=== PATIENT | female | born 1985 | race Caucasian/White ===

== ENCOUNTER 2024-08-30 07:14 | Inpatient (IN) | payer BC, OTHER ==
[~2024-08-30] VITALS: Ht 167.6 cm; Wt 56.6 kg
[2024-08-30 07:46] LABS: Chloride 106 mmol/L (98-107); Potassium 3.5 mmol/L (3.5-5.1); Sodium 140 mmol/L (136-145)
[2024-08-30 07:47] LABS: Anion Gap 9 (5-15); Carbon Dioxide 25 mmol/L (20-31)
[2024-08-30 07:48] LABS: Calcium 10.2 mg/dL (8.7-10.4)
--- NOTE | 2024-08-30 07:51 | ED.PDOC ---
HPI Comments 39 year old female presents to the ED with chief complaint of palpitations. Patient reports that she had woken up this morning feeling like her heart was "fluttering," experiencing palpitations and later some anxiety due to this feeling. Patient relays that she has had multiple episodes in the past, however, when seeing her PCP regarding this concern, she was not sent to a ekg tech to have her heart monitored. Patient denies any chest pain, SOB, dizziness, headache, N/V, or fever. Chief Complaint: Palpitations Time Seen by MD: 07:47 Primary Care Provider: DR BINGHAM Reviewed Notes: Nurses Notes, Medications, Allergies Allergies: Coded Allergies: NO KNOWN ALLERGIES (Unverified , 11/17/10) Information Source: Patient Mode of Arrival: Ambulatory Severity: Moderate Timing: Hours Duration: Since onset Prehospital treatment: None Onset: At Rest Cardiac Risk Factors: None PE Risk Factors: None History of: None Associated Signs and Symptoms: Palpitations Past Medical History PAST MEDICAL HISTORY: Denies Surgical History: Denies all surgeries POP SINGER History: Denies all POP SINGER Hx Family History Family History: Reviewed,noncontributory to illness, Unobtainable Social History Smoker: Non-Smoker Alcohol: Denies ETOH Use Drugs: Denies Drug Use Lives In: Home Constitutional: denies: chills, diaphoresis, fatigue, fever, malaise, sweats, weakness, others EENTM: denies: blurred vision, double vision, ear bleeding, ear discharge, ear drainage, ear pain, ear ringing, eye pain, eye redness, hearing loss, mouth pain, mouth swelling, nasal discharge, nose bleeding, nose congestion, nose pain, photophobia, tearing, throat pain, throat swelling, voice changes, others Respiratory: denies: cough, hemoptysis, orthopnea, SOB at rest, shortness of breath, SOB with excertion, stridor, wheezing, others Cardiovascular: reports: palpitations; denies: chest pain, dizzy spells, diaphoresis, Dyspnea on exertion, edema, irregular heart beat, left arm pain, lightheadedness, PND, syncope, others Gastrointestinal: denies: abdomen distended, abdominal pain, blood streaked bowels, constipated, diarrhea, dysphagia, difficulty swallowing, hematemesis, melena, nausea, poor appetite, poor fluid intake, rectal bleeding, rectal pain, vomiting, others Genitourinary: denies: abnormal vagina bleeding, burning, dyspareunia, dysuria, flank pain, frequency, hematuria, incontinence, pain, , vagina discharge, urgency, others Neurological: denies: dizziness, fainting, headache, left sided numbness, left sided weakness, numbness, paresthesia, pre-existing deficit, right sided numbness, right sided weakness, seizure, speech problems, tingling, tremors, weakness, others Musculoskeletal: denies: back pain, gout, joint pain, joint swelling, muscle pain, muscle stiffness, neck pain, others Integumetry: denies: bruises, change in color, change in hair/nails, dryness, laceration, lesions, lumps, rash, wounds, others Allergic/Immunocompromised: denies: Difficulty Healing, Frequent Infections, Hives, Itching, others Hematologic/Lymphatic: denies: anemia, blood clots, easy bleeding, easy bruising, swollen glands, others Endocrine: denies: excessive hunger, excessive sweating, excessive thirst, excessive urination, flushing, intolerance to cold, intolerance to heat, unexplained weight gain, unexplained weight loss, others Psychiatric: reports: anxiety; denies: bipolar disorder, depression, hopeless, panic disorder, schizophrenia, sleepless, suicidal, others All Other Systems: Reviewed and Negative Physical Exam General Appearance: Moderate Distress, Normal HEENT: Normal ENT Inspection, PERRL/EOMI Neck: Full Range of Motion, Non-Tender, Normal, Normal Inspection Respiratory: Chest Non-Tender, Lungs Clear, No Accessory Muscle Use, No Respiratory Distress, Normal Breath Sounds Cardiovascular: No Edema, No JVD, No Murmur, No Gallop, Normal Peripheral Pulses, Tachycardia Breast Exam: Deferred Gastrointestinal: No Organomegaly, Non Tender, No Pulsatile Mass, Normal Bowel Sounds, Soft Genitalia: Deferred Pelvic: Deferred Rectal: Deferred Extremities: No calf tenderness, Normal capillary refill, Normal inspection, Normal range of motion, Non-tender, No pedal edema Musculoskeletal : Apperance: Normal Neurologic: Alert, regional transfer liaison II-XII nml as Tested, No Motor Deficits, Normal Affect, Normal Mood, No Sensory Deficits Cerebellar Function: Normal Reflexes: Normal Skin: Dry, Normal Color, Warm Peripheral Pulses: 3+ Radial (R), 3+ Radial (L) Lymphatic: No Adenopathy Was a procedure done? Was a procedure done?: No CP Differential Dx Differential Diagnosis: A-fib, A-Flutter, Angina, Anxiety / Panic Attack, Atrial Dysrhythmia, Electrolyte Disorder X-Ray, Labs, Meds, VS Vital Signs Date Time Temp Pulse Resp B/P (MAP) Pulse Ox O2 Delivery O2 Flow Rate FiO2 08/30/24 07:24 78 08/30/24 07:21 98.2 104 16 136/85 (102) 100 Lab Test 08/30/24 07:26 Range/Units White Blood Count Pending Red Blood Count Pending Hemoglobin Pending Hematocrit Pending Mean Corpuscular Volume Pending Mean Corpuscular Hemoglobin Pending Mean Corpuscular Hemoglobin Concent Pending Red Cell Distribution Width Pending Platelet Count Pending Mean Platelet Volume Pending Neutrophils (%) (Auto) Pending Lymphocytes (%) (Auto) Pending Monocytes (%) (Auto) Pending Basophils (%) (Auto) Pending Neutrophils # (Auto) Pending Lymphocytes # (Auto) Pending Monocytes # (Auto) Pending Sodium Level 140 136-145 mmol/L Potassium Level 3.5 3.5-5.1 mmol/L Chloride Level 106 98-107 mmol/L Carbon Dioxide Level 25 20-31 mmol/L Anion Gap 9 5-15 Blood Urea Nitrogen 11 9-23 mg/dL Creatinine 0.83 0.550-1.02 mg/dL Glomerular Filtration Rate Calc 92 >90 mL/min BUN/Creatinine Ratio 13.3 10.0-20.0 Serum Glucose 104 74-106 mg/dL Calcium Level 10.2 8.7-10.4 mg/dL Troponin I High Sensitivity < 3 L </=34 ng/L Patient alert. Complaining of palpitations. Was initially tachycardic. Vitals stable. Possible mitral valve disease. She possibly has a anxiety. She has been having these symptoms for many months. Cardiac marker within normal limits. EKG reviewed does not show any acute changes. Echocardiogram. Cardiology consultation. Explained to the patient. Continue cardiac monitoring. Time of 1ST Reevaluation: 08:47 Reevaluation 1ST: Unchanged Patient Education/Counseling: Diagnosis, Treatment Family Education/Counseling: No Family Present Additional Information I reviewed the following notes from patient's past medical encounters: None The following tests were ordered, and results were reviewed by me: CBC, BMP, Troponin, UA, EKG Additional Information was gathered from interviewing the following independent historians: None I reviewed and agreed with the following test results read by other providers: None I discussed treatment and results with medical personnel. Departure 1 Departure Time of Disposition: 08:02 Impression: Primary Impression: Mitral valve disease Additional Impression: Palpitations Disposition: ADMITTED INPATIENT Admit to: Med Surg Condition: Guarded Critical Care Note Critical Care Time?: No Stability Stability form required: No Heart Score Heart Score: Heart Score Response (Comments) Value History Moderate Suspicious 1 EKG Normal 0 Age <45 0 Risk Factors No known risk factors 0 Troponin Normal limit 0 Total 1 I personally scribed for LUCY SOLOMON MD ([email or web address]) on 08/30/24 at 07:51. Electronically submitted by Stevie Richmond ([email or web address]). LUCY SOLOMON MD Aug 30, 2024 07:51
[2024-08-30 07:53] LABS: BUN/Creatinine Ratio 13.3 (10.0-20.0); Blood Urea Nitrogen 11 mg/dL (9-23); Glucose 104 mg/dL (74-106)
[2024-08-30 08:07] LABS: Basophils # (auto) 0 10 ^3/uL (0-0.2); Basophils % (auto) 0.6 % (0.0-2.0); Eosinophils # (auto) 0.1 10 ^3/uL (0-0.8); Hematocrit 37.9 % (36.0-46.0); Monocytes # (auto) 0.3 10 ^3/uL (0-1.3); Monocytes % (auto) 5.4 % (0.0-12.0); Neutrophils # (auto) 2.9 10 ^3/uL (1.6-8.6); Red Blood Cells 5.13 10^6/uL (4.0-5.20)
[2024-08-30 08:09] LABS: Hemoglobin 12.2 g/dL (12.2-16.2); Lymphocytes # (auto) 1.9 10 ^3/uL (0.4-5.4); Lymphocytes % (auto) 36.6 % (10.0-50.0); Mean Corpuscular Hemoglobin 23.7 pg (28.0-32.0); Mean Corpuscular Hgb Conc. 32.1 g/dL (32.0-36.0); Neutrophils % (auto) 56.4 % (37.0-80.0); Nucleated Red Blood Cells % 0.1 %; Platelet Count (auto) 189 10^3/uL (140-450); Red Cell Distribution Width 16.5 % (11.8-14.3); White Blood Cell 5.2 10^3/uL (4.4-10.8)
[2024-08-30 08:10] VITALS: PULSE 94; RESP 17; O2SAT 100
[2024-08-30 09:18] LABS: Urine Bacteria FEW /hpf (None Seen); Urine Blood Negative /uL (Negative); Urine Clarity Clear (Clear); Urine Color Colorless (Yellow); Urine Protein, UAD Negative (Negative); Urine Specific Gravity 1.004 (1.001-1.035); Urine Squamous Epithelial Cell FEW /hpf (<5); Urine Urobilinogen Normal (Negative); Urine WBC 2 /HPF (0-5); Urine pH 7.5 (5.0-9.0)
--- NOTE | 2024-08-30 12:10 | DVH ---
CHEST RADIOGRAPH Indication: palpitations Technique: Single frontal view of the chest was obtained COMPARISON: None FINDINGS: Lines and Tubes: None Lungs: Clear Pleura: No effusion. No pneumothorax. Cardiomediastinal contours: Unremarkable Bones: Unremarkable IMPRESSION: No acute disease.
[2024-08-30] MEDS ORDERED: ONDANSETRON HCL 4 MG/2 ML VIAL IV PRN (12:45)
[2024-08-30] MEDS ORDERED: NITROGLYCERIN 0.4 MG SL TAB SL PRN (12:45)
[2024-08-30] MEDS ORDERED: ACETAMINOPHEN 325 MG TAB PO PRN (12:45)
[2024-08-30] MEDS ORDERED: MORPHINE SULFATE INJ 2 MG/ml SYRG IV PRN (12:45)
[2024-08-30] MEDS ORDERED: HYDROcodone-ACET 5/325MG TAB PO PRN (12:45)
--- NOTE | 2024-08-30 12:47 | DVHHP2 ---
History of Present Illness Reason for Visit: Palpitations History of Present Illness Estela Peters is a 39-year-old female with past medical history of D&C and breast augmentation who presents to the ED for palpitations and flutter x1 day. Patient states that she awoke feeling palpitations and flutter around 630 this morning. Patient states that she has had this before and got an echo done in May of 2024 with results that were normal. Patient denies any illnesses, but does state that her fiance is sick at home with a cold. Patient also denies any recent stressors or anxiety. Patient denies any shortness of breath, abdominal pain, nausea, vomiting, diarrhea, fever, chills, lightheadedness, weakness, dizziness, and denies any urinary symptoms. Past Surgical History: Other (D&C and breast augmentation) Family History: Other (Grandmother with heart disease) Smoke: No ALCOHOL: none Drugs: None Lives: with Family Domestic Violence: Neg Review of Systems Constitutional: No: Fever, Chills, Sweats, Weakness, Malaise, Other Eyes: No: Pain, Vision change, Conjunctivae inflammation, Eyelid inflammation, Other, Redness ENT: No: Ear pain, Ear discharge, Nose pain, Nose discharge, Nose congestion, Mouth pain, Mouth swelling, Throat pain, Throat swelling, Other Respiratory: No: Cough, Dry, Shortness of breath, SOB with excertion, Wheezing, Hemoptysis, Pleuritic Pain, Sputum, Wheezing, Other Cardiovascular: Palpitations; No: Chest Pain, Orthopnea, Paroxysmal Noc. Dyspnea, Edema, Lt Headedness, Other Gastrointestinal: No: Nausea, Vomiting, Abdominal Pain, Diarrhea, Constipation, Melena, Hematochezia, Other Genitourinary: No Dysuria, No Frequency, No Incontinence, No Hematuria, No Retention, No Other Musculoskeletal: No: other, neck pain, shoulder pain, arm pain, back pain, hand pain, leg pain, foot pain Skin: No: Rash, Lesions, Jaundice, Bruising, Other Neurological: No: Weakness, Numbness, Incoordination, Change in speech, Confusion, Seizures, Other Allergies: Coded Allergies: NO KNOWN ALLERGIES (Unverified , 11/17/10) Medications Current Medications Medications Dose Ordered Sig/Shaila Route Start Time Stop Time Status Last Admin Dose Admin Ceftriaxone Sodium 50 ml @ 100 mls/hr DAILY@09 IV 08/31/24 09:00 UNV Acetaminophen/ Hydrocodone Bitart 1 tab Q4HP PRN PO 08/30/24 12:45 UNV Ondansetron HCl 4 mg Q4HP PRN IV 08/30/24 12:45 UNV Acetaminophen 650 mg Q6HP PRN PO 08/30/24 12:45 UNV Nitroglycerin 0.4 mg Q5MINP PRN SL 08/30/24 12:45 UNV Morphine Sulfate 2 mg Q30M PRN IV 08/30/24 12:45 UNV Exam Vital Signs Vital Signs Date Time Temp Pulse Resp B/P (MAP) Pulse Ox O2 Delivery O2 Flow Rate FiO2 08/30/24 11:05 97.8 133 19 149/83 (105) 100 97.8 08/30/24 08:10 Room Air* 0 21 General Appearance: Alert, Oriented X3, Cooperative, No acute distress HEENT: Atraumatic, PERRLA, EOMI, Mucous membr. moist/pink Respiratory: Clear to auscultation, Normal air movement Cardiovascular: Normal S1, Normal S2, No murmurs Abdominal: Normal bowel sounds, Soft, No tenderness, No hepatospenomegaly, No masses Extremities: No clubbing, No cyanosis, No edema, Normal pulses, No tenderness/swelling Skin: No rashes, No breakdown, No significant lesion Neuro: Normal gait, Normal speech, Strength at 5/5 X4 ext, Normal tone, Sensation intact Psych/Mental Status: Mental status NL, Mood NL Labs/Xrays Labs Test 08/30/24 08:46 08/30/24 07:26 08/30/24 07:25 Range/Units Troponin I High Sensitivity < 3 L </=34 ng/L White Blood Count 5.2 4.4-10.8 10^3/uL Red Blood Count 5.13 4.0-5.20 10^6/uL Hemoglobin 12.2 12.2-16.2 g/dL Hematocrit 37.9 36.0-46.0 % Mean Corpuscular Volume 74.0 L 80.0-100.0 fL Mean Corpuscular Hemoglobin 23.7 L 28.0-32.0 pg Mean Corpuscular Hemoglobin Concent 32.1 32.0-36.0 g/dL Red Cell Distribution Width 16.5 H 11.8-14.3 % Platelet Count 189 140-450 10^3/uL Mean Platelet Volume 8.4 6.9-10.8 fL Neutrophils (%) (Auto) 56.4 37.0-80.0 % Lymphocytes (%) (Auto) 36.6 10.0-50.0 % Monocytes (%) (Auto) 5.4 0.0-12.0 % Eosinophils (%) (Auto) 1.0 0.0-7.0 % Basophils (%) (Auto) 0.6 0.0-2.0 % Neutrophils # (Auto) 2.9 1.6-8.6 10 ^3/uL Lymphocytes # (Auto) 1.9 0.4-5.4 10 ^3/uL Monocytes # (Auto) 0.3 0-1.3 10 ^3/uL Eosinophils # (Auto) 0.1 0-0.8 10 ^3/uL Basophils # (Auto) 0 0-0.2 10 ^3/uL Nucleated Red Blood Cells 0.1 % Sodium Level 140 136-145 mmol/L Potassium Level 3.5 3.5-5.1 mmol/L Chloride Level 106 98-107 mmol/L Carbon Dioxide Level 25 20-31 mmol/L Anion Gap 9 5-15 Blood Urea Nitrogen 11 9-23 mg/dL Creatinine 0.83 0.550-1.02 mg/dL Glomerular Filtration Rate Calc 92 >90 mL/min BUN/Creatinine Ratio 13.3 10.0-20.0 Serum Glucose 104 74-106 mg/dL Calcium Level 10.2 8.7-10.4 mg/dL Urine Color Colorless Yellow Urine Clarity Clear Clear Urine pH 7.5 5.0-9.0 Urine Specific [place] 1.004 1.001-1.035 Urine Protein Negative Negative Urine Ketones Negative Negative Urine Blood Negative Negative /uL Urine Nitrite Negative Negative Urine Bilirubin Negative Negative Urine Urobilinogen Normal Negative mg/dL Urine Leukocyte Esterase 1+ Negative /uL Urine RBC 1 0 - 4 /hpf Urine Microscopic WBC 2 0-5 /HPF Urine Squamous Epithelial Cells Few <5 /hpf Urine Bacteria Few H None Seen /hpf Urine Glucose Normal Normal mg/dL CHEST RADIOGRAPH Indication: palpitations Technique: Single frontal view of the chest was obtained COMPARISON: None FINDINGS: Lines and Tubes: None Lungs: Clear Pleura: No effusion. No pneumothorax. Cardiomediastinal contours: Unremarkable Bones: Unremarkable IMPRESSION: No acute disease. Assessment/Plan Assessment/Plan Assessment/Plan: Palpitations UTI UA A.m. labs Labs EKG Troponin negative x2 Chest x-ray TSH UDS Lipid Echo ordered Antiemetics Pain management IV antibiotics-ceftriaxone Lactic ESR CRP Cardiology consult FEN/PPX Diet IV fluid DVT ppx - not indicated patient ambulating PUD prophylaxis -not indicated patient no history of GI bleed or GERD Discussed plan of care with patient and nurse Home medications reconciled Admit to tele Plan discussed with: Patient My Orders Orders - ANIBAL PEREZ Procedure Category Date Status Time Chest Xray 1 View XY 08/30/24 Resulted 11:06 Ceftriaxone 1gm/50ml PHA 08/31/24 Logged D5w (Rocephin) 09:00 Ceftriaxone 1gm/50ml PHA 08/30/24 Logged D5w (Rocephin) 12:45 Admit ADMIT 08/30/24 Transmitted 12:39 Allergies LOUIE 08/30/24 In Process 12:39 Code Status CODE 08/30/24 Transmitted 12:39 Hydrocodone-Acet PHA 08/30/24 Logged 5/325mg Tab ([place] 12:45 Ondansetron Hcl PHA 08/30/24 Logged (Zofran) 12:45 Complete Blood Count LAB 08/31/24 Verified 04:00 Comprehensive LAB 08/31/24 Verified Metabolic Panel 04:00 Cardiac DIET 08/30/24 Transmitted Diet-2gna,Lofat,Lochol Lunch Acetaminophen Tablet PHA 08/30/24 Logged (Tylenol Tablet) 12:45 Nitroglycerin PHA 08/30/24 Logged Sublingual (Ntrostat 12:45 Morphine Sulfate PHA 08/30/24 Logged Injection 12:45 Stat Ekg For Chest [facility] 08/30/24 In Process Pain 12:39 Notify Md Of Changes [facility] 08/30/24 In Process From Base 12:39 Director [employer] For LOUIE 08/30/24 In Process 24 Hours 12:39 Emergency Dysrhythmia [facility] 08/30/24 In Process Protocol 12:39 Rhythm Strips Once LOUIE 08/30/24 In Process Every Shift 12:39 Oxygen By Nasal RT 08/30/24 Transmitted Cannula 12:39 Date of Service: Aug 30, 2024 Billing Provider: THON,SALINA K [employer] Common Visit Codes: [id number] INP/OBS CARE (HIGH) ANIBAL PEREZ [employer] Aug 30, 2024 12:47
[2024-08-30] MEDS: SODIUM CHLORIDE 0.9% 1,000 ML IV SCH (13:00)
[2024-08-30] MEDS: cefTRIAXone 1GM/50ML D5W 50 ML IV ONE (13:04)
[2024-08-30 13:26] LABS: Amphetamine Screen, Urine Neg (NEGATIVE); Barbiturate Scree,Urine Neg (NEGATIVE); Benzodiazephine Screen, Urine Neg (NEGATIVE); Cannabinoid Screen, Urine Neg (NEGATIVE); Cocaine Screen, Urine Neg (NEGATIVE); Opiate Scree,Urine Neg (NEGATIVE); Phencyclidine Screen, Urine Neg (NEGATIVE)
[2024-08-30 13:56] LABS: Erythrocyte Sedimentation Rate 5 mm/hr (0-20); Triglycerides 93 mg/dL (< 150)
[2024-08-30 13:57] LABS: LDL Cholesterol 95 mg/dL (< 100)
[2024-08-30 13:58] LABS: Cholesterol 173 mg/dL (< 200)
[2024-08-30 13:59] LABS: HDL Cholesterol 66 mg/dL (40-59)
--- NOTE | 2024-08-30 18:15 | DVHINCON2 ---
Date Seen: Aug 30, 2024 Referring Physician GLENNA Baca Reason for Consultation Palpitations History of Present Illness This is a 39-year-old female who presented to the emergency room with a chief complaint palpitations since 0700 this morning. The patient reports she awoke with her normal routine as usual when she felt some palpitations associated with mild shortness of breath prompting her to seek further medical attention. Denies chest pain, palpitations, diaphoresis, dizziness, visual disturbances, or syncopal events. Denies the use of illicit drugs, alcohol, tobacco, or caffeinated drinks. Denies undergoing stressful events or history of anxiety. She underwent a 12 lead electrocardiogram revealing a sinus rhythm with nonspecific inferior ST changes. Medical history includes breast augmentation and D&C. Past Medical History Past medical history reviewed. No other significant than mentioned above. Past Surgical History See HPI. Family History Family history reviewed. Paternal grandmother with CHF. Social History Denies the use of illicit drugs, alcohol, or tobacco use. Allergies: Coded Allergies: NO KNOWN ALLERGIES (Unverified , 11/17/10) Home Meds Denies any home medications. Current Medications Current Medications Medications (Trade) Dose Ordered Sig/Shaila Route PRN Reason Start Time Stop Time Status Last Admin Ceftriaxone Sodium 50 ml @ 100 mls/hr DAILY@09 IV 08/31/24 09:00 Acetaminophen/ Hydrocodone Bitart ([place] 5/325MG Tab) 1 tab Q4HP PRN PO MODERATE PAIN (4-6 PAIN SCALE) 08/30/24 12:45 Ondansetron HCl (Zofran) 4 mg Q4HP PRN IV NAUSEA / VOMITING 08/30/24 12:45 Acetaminophen (Tylenol Tablet) 650 mg Q6HP PRN PO PAIN SCALE 1-3 OR TEMP>100.4 08/30/24 12:45 Nitroglycerin (Ntrostat Sublingual) 0.4 mg Q5MINP PRN SL FOR CHEST PAIN 08/30/24 12:45 Morphine Sulfate 2 mg Q30M PRN IV FOR CHEST PAIN 08/30/24 12:45 Sodium Chloride 1,000 ml @ 75 mls/hr [id number] IV 08/30/24 13:00 Review of Systems Constitutional: No symptom reported Ears, Nose, & Throat: No symptom reported Eyes: No symptom reported Neurological: No symptoms reported Pulmonary/Respiratory: No symptom reported Cardiovascular: Palpitations Gastrointestinal: No symptom reported Genitourinary: No symptom reported Musculoskeletal: No symptom reported Skin: No symptom reported Psychiatric: No symptom reported Endocrine: No symptom reported Hemotologic/Lymphatic: No symptom reported Vital Signs Vital Signs Date Time Temp Pulse Resp B/P (MAP) Pulse Ox O2 Delivery O2 Flow Rate FiO2 08/30/24 17:38 97.7 85 18 136/78 (97) 99 97.7 08/30/24 08:10 Room Air* 0 21 Physical Exam General Appearance: Cooperative. Well developed. Well nourished. In no acute distress Head Exam: Normal inspection Neck Exam: Normal inspection. Non-tender. Normal alignment Pulmonary/Respiratory: Chest non-tender. Clear bilateral breath sounds Cardiovascular/Chest: Regular rate and rhythm. S1, S2. Sinus rhythm with nonspecific inferior changes. No murmurs. No JVD. Peripheral Pulses: 2+ Radial (R). 2+ Radial (L). 2+ Pedal (R). 2+ Pedal (L) Abdominal Exam: Normal bowel sounds. Soft. Nontender. No hepatospenomegaly. No masses Ankle Exam: Negative ankle edema Lower extremities: Negative lower extremity edema Neuro/Mental Status: A&O x4. Coherent Thoughts/Psych: Normal thought pattern. Very anxious Appearance: In no acute distress Skin Exam: Normal inspection. Normal color. Warm. Dry Labs/Diagnostic Data Labs Test 08/30/24 13:19 08/30/24 08:46 08/30/24 07:26 08/30/24 07:25 Range/Units Lactic Acid Level 1.2 0.4-2.0 mmol/L Troponin I High Sensitivity < 3 L </=34 ng/L White Blood Count 5.2 4.4-10.8 10^3/uL Red Blood Count 5.13 4.0-5.20 10^6/uL Hemoglobin 12.2 12.2-16.2 g/dL Hematocrit 37.9 36.0-46.0 % Mean Corpuscular Volume 74.0 L 80.0-100.0 fL Mean Corpuscular Hemoglobin 23.7 L 28.0-32.0 pg Mean Corpuscular Hemoglobin Concent 32.1 32.0-36.0 g/dL Red Cell Distribution Width 16.5 H 11.8-14.3 % Platelet Count 189 140-450 10^3/uL Mean Platelet Volume 8.4 6.9-10.8 fL Neutrophils (%) (Auto) 56.4 37.0-80.0 % Lymphocytes (%) (Auto) 36.6 10.0-50.0 % Monocytes (%) (Auto) 5.4 0.0-12.0 % Eosinophils (%) (Auto) 1.0 0.0-7.0 % Basophils (%) (Auto) 0.6 0.0-2.0 % Neutrophils # (Auto) 2.9 1.6-8.6 10 ^3/uL Lymphocytes # (Auto) 1.9 0.4-5.4 10 ^3/uL Monocytes # (Auto) 0.3 0-1.3 10 ^3/uL Eosinophils # (Auto) 0.1 0-0.8 10 ^3/uL Basophils # (Auto) 0 0-0.2 10 ^3/uL Nucleated Red Blood Cells 0.1 % Erythrocyte Sedimentation Rate 5 0-20 mm/hr Sodium Level 140 136-145 mmol/L Potassium Level 3.5 3.5-5.1 mmol/L Chloride Level 106 98-107 mmol/L Carbon Dioxide Level 25 20-31 mmol/L Anion Gap 9 5-15 Blood Urea Nitrogen 11 9-23 mg/dL Creatinine 0.83 0.550-1.02 mg/dL Glomerular Filtration Rate Calc 92 >90 mL/min BUN/Creatinine Ratio 13.3 10.0-20.0 Serum Glucose 104 74-106 mg/dL Calcium Level 10.2 8.7-10.4 mg/dL C-Reactive Protein High Sensitivity 0.07 <1.0 mg/dL Triglycerides Level 93 < 150 mg/dL Cholesterol Level 173 < 200 mg/dL LDL Cholesterol 95 < 100 mg/dL HDL Cholesterol 66 H 40-59 mg/dL Thyroid Stimulating Hormone (TSH) 3.38 0.55-4.78 uIU/mL Urine Color Colorless Yellow Urine Clarity Clear Clear Urine pH 7.5 5.0-9.0 Urine Specific [place] 1.004 1.001-1.035 Urine Protein Negative Negative Urine Ketones Negative Negative Urine Blood Negative Negative /uL Urine Nitrite Negative Negative Urine Bilirubin Negative Negative Urine Urobilinogen Normal Negative mg/dL Urine Leukocyte Esterase 1+ Negative /uL Urine RBC 1 0 - 4 /hpf Urine Microscopic WBC 2 0-5 /HPF Urine Squamous Epithelial Cells Few <5 /hpf Urine Bacteria Few H None Seen /hpf Urine Glucose Normal Normal mg/dL Urine Opiates Screen Neg NEGATIVE Urine Fentanyl Screen Neg NEGATIVE Urine Barbiturates Screen Neg NEGATIVE Urine Phencyclidine Screen Neg NEGATIVE Urine Amphetamines Screen Neg NEGATIVE Urine Benzodiazepines Screen Neg NEGATIVE Urine Cocaine Screen Neg NEGATIVE Urine Cannabinoids Screen Neg NEGATIVE Assessment Palpitations rule out tachyarrhythmias Rule out structural heart disease, ?MVP Anxiety Plan/Recommendation (Dr. Berman) Patient with palpitations with a undergo a transthoracic echocardiogram to rule out structural heart disease. Given the patient's age and symptoms it is prudent to rule out mitral valve prolapse. TSH levels within normal limits. Borderline potassium level for which replacement will be initiated. Magnesium level pending at this time. Monitor radiation monitor overnight and notify cardiac arrhythmias as necessary. Thank you for allowing us to participate in this patient's care. Please call if you have any questions or concerns. This medical document was created using an electronic medical record system with voice recognition software and computerized dictation system. Although this document has been carefully reviewed, there might still be some phonetic and typographical errors. Occasional wrong-word or ``sound-alike substitutions may have occurred due to the inherent limitations of voice recognition software. These areas are purely typographical due to imperfections of the software pr osmel and do not reflect any compromise in the patient's medical care. Please read the chart carefully and recognize, using context, where these substitutions have occurred. Plan discussed with: Patient, Other NYHA Physical activity limitations: NA Date of Service: Aug 30, 2024 Billing Provider: BASILIA ZAPATA Cardiology Common Codes: [id number] INP/OBS CARE (High) BASILIA ZAPATA Aug 30, 2024 18:15
[2024-08-30 18:32] VITALS: BP 142/69; PULSE 84; RESP 19; TEMP 98.2; O2SAT 100
[2024-08-30 18:47] VITALS: BP 142/69; PULSE 95; RESP 17; TEMP 98.2; O2SAT 100
[2024-08-30 20:00] VITALS: PULSE 80
--- NOTE | 2024-08-30 20:44 | ECG ---
[facility] Test Date: 2024-08-30 Test Time: 07:24:48 Pat Name: AIYANA ESPINAL Department: er Room: 0220T B Gender: F Psych Arnp: [birth year] : 1985 Requested By: LUCY SOLOMON Order Number: [id number] Reading MD: Bernabe Berman Measurements Intervals [place] Rate: 78 P: 63 OR: 131 QRS: 81 QRSD: 84 T: 37 QT: 362 QTc: 413 Interpretive Statements Sinus rhythm Anteroseptal infarct, age indeterminate Baseline wander in lead(s) I,aVR,aVL,V1 Electronically Signed On 09-01-2024 16:36:26 PST by Bernabe Berman Please click the below link to view image of tracing.
[2024-08-30 22:00] VITALS: BP 125/72; PULSE 88; RESP 18; TEMP 98; O2SAT 98
[2024-08-31] VITALS (7 sets, daily range): BP systolic 107–124; BP diastolic 58–76; PULSE 76–131; RESP 18–87; TEMP 36.7; O2SAT 95–100
[2024-08-31 06:54] LABS: Alanine Aminotransferase 19 U/L (7-40); Alkaline Phosphatase 58 U/L (46-116); Anion Gap 6 (5-15); BUN/Creatinine Ratio 11.8 (10.0-20.0); Calcium 9.5 mg/dL (8.7-10.4); Carbon Dioxide 27 mmol/L (20-31); Glucose 90 mg/dL (74-106); Potassium 3.5 mmol/L (3.5-5.1); Sodium 141 mmol/L (136-145)
[2024-08-31 06:55] LABS: Albumin 4.2 g/dL (3.2-4.8); Aspartate Aminotransferase 20 U/L (13-40); Bilirubin, Total 0.8 mg/dL (0.2-1.0); Total Protein 6.4 g/dL (5.7-8.2)
[2024-08-31 06:59] LABS: Basophils # (auto) 0 10 ^3/uL (0-0.2); Basophils % (auto) 0.6 % (0.0-2.0); Eosinophils # (auto) 0 10 ^3/uL (0-0.8); Eosinophils % (auto) 0.9 % (0.0-7.0); Monocytes # (auto) 0.4 10 ^3/uL (0-1.3); Nucleated Red Blood Cells % 0.1 %; Platelet Count (auto) 174 10^3/uL (140-450)
[2024-08-31 07:03] LABS: Hematocrit 32.8 % (36.0-46.0); Hemoglobin 10.9 g/dL (12.2-16.2); Lymphocytes # (auto) 1.7 10 ^3/uL (0.4-5.4); Lymphocytes % (auto) 34.2 % (10.0-50.0); Mean Corpuscular Hemoglobin 24.3 pg (28.0-32.0); Mean Corpuscular Hgb Conc. 33.1 g/dL (32.0-36.0); Mean Corpuscular Volume 73.5 fL (80.0-100.0); Monocytes % (auto) 7.7 % (0.0-12.0); Neutrophils # (auto) 2.9 10 ^3/uL (1.6-8.6); Neutrophils % (auto) 56.6 % (37.0-80.0); Red Blood Cells 4.46 10^6/uL (4.0-5.20); Red Cell Distribution Width 16.6 % (11.8-14.3); White Blood Cell 5.1 10^3/uL (4.4-10.8)
[2024-08-31 07:04] LABS: Blood Urea Nitrogen 9 mg/dL (9-23); Chloride 108 mmol/L (98-107)
[2024-08-31] MEDS: cefTRIAXone 1GM/50ML D5W 50 ML IV SCH (09:39)
[2024-08-31] MEDS: POTASSIUM CHL 20 Meq TABLET PO ONE (09:39)
--- NOTE | 2024-08-31 11:35 | DVHPN2 ---
Consult Progress Note Date Seen: Aug 31, 2024 Subjective Review of Systems: CVS:Normal, RESPIRATORY:Normal, NEURO:Normal Objective vital signs Vital Sign Date Time Temp Pulse Resp B/P (MAP) Pulse Ox O2 Delivery O2 Flow Rate FiO2 08/31/24 09:00 98.0 89 87 114/76 (89) 95 98.0 08/30/24 20:00 Room Air* 0 21 Total Intake and Output 08/30/24 08/30/24 08/31/24 15:00 23:00 07:00 Intake Total 50 ml 350 ml Balance 50 ml 350 ml medications Current Medications Medications Dose Ordered Sig/Shaila Route Start Time Stop Time Status Last Admin Dose Admin Ceftriaxone Sodium 50 ml @ 100 mls/hr DAILY@09 IV 08/31/24 09:00 08/31/24 09:39 100 MLS/HR Acetaminophen/ Hydrocodone Bitart 1 tab Q4HP PRN PO 08/30/24 12:45 Ondansetron HCl 4 mg Q4HP PRN IV 08/30/24 12:45 Acetaminophen 650 mg Q6HP PRN PO 08/30/24 12:45 Nitroglycerin 0.4 mg Q5MINP PRN SL 08/30/24 12:45 Morphine Sulfate 2 mg Q30M PRN IV 08/30/24 12:45 Sodium Chloride 1,000 ml @ 75 mls/hr [id number] IV 08/30/24 13:00 08/30/24 23:37 75 MLS/HR Examination: LUNGS:Normal, CVS:Normal (Low burden of casual PVCs/PACs ), NEURO:Normal laboratory and microbiology Laboratory Tests 08/31/24 06:11 Test 08/31/24 06:11 Range/Units Serum Glucose 90 74-106 mg/dL Problem List/Assessment/Plan Problem List/Assessment/Plan Palpitations rule out tachyarrhythmias Intermittent PVCs/PACs, low burden Anxiety Plan/Recommendation (Dr. Yee) Patient seen and examined at bedside with Dr. Yee. The patient who presented with palpitations underwent a transthoracic echocardiogram revealing an EF of 60-65%. There were no caesar/tachyarrhythmias identified overnight. Identified a low burden of casual PACs/PVCs on materials management clerk. TSH and electrolyte levels all within normal limits. We recommend an outpatient event monitor to further identify possible arrhythmias or higher PVCs/PACs burden. There is no further cardiac work-up indicated at this time. Kindly call if in need to re-consult. Thank you for allowing us to participate in this patient's care. Please call if you have any questions or concerns. This medical document was created using an electronic medical record system with voice recognition software and computerized dictation system. Although this document has been carefully reviewed, there might still be some phonetic and typographical errors. Occasional wrong-word or ``sound-alike substitutions may have occurred due to the inherent limitations of voice recognition software. These areas are purely typographical due to imperfections of the software programs and do not reflect any compromise in the patient's medical care. Please read the chart carefully and recognize, using context, where these substitutions have occurred. Plan discussed with: Patient, Other Date of Service: Aug 31, 2024 Billing Provider: BASILIA ZAPATA Cardiology Common Codes: [id number] HOSP CARE(High BASILIA ZAPATA Aug 31, 2024 11:35
--- NOTE | 2024-08-31 12:01 | DVHSR ---
APPROVED REPORT EXAM: Two-dimensional and M-mode echocardiogram with Doppler and color Doppler. Blood Pressure: 149/83 mmHg INDICATION Palpitations RISK FACTORS Height: 5'6", Weight: 146 DIMENSIONS LVDd3.6 (3.8-5.7cm)LA (2D)3.3 (1.9-4.0cm)Aortic Root3.1 (2.0-3.7cm) LVDs2.3 (2.5-4.0cm)LA (MM) (1.9-4.0cm)Aortic Cusp Exc1.8 (1.5-2.0cm) EF (%) 65.0 (55-70%)Rt. Atrium3.2 (1.9-4.0cm)Asc. Aorta cm IVSd1.0 (0.7-1.1cm)RV (D) (1.8-2.4cm) PWd1.0 (0.7-1.1cm) Mitral Valve MitralMitral Stenosis E wave0.88m/sMV Mean GR.mmHg A wave0.77m/sMV Peak GR.mmHg E/A ratio1.12D MVAcm2 DECEL [id number] 1/2 Tim[place] Aortic Valve Aortic ValveAortic Stenosis V10.97m/[place] Mean GR.3mmHg V21.18m/[place] Peak GR.6mmHg LVOT Diameter1.8 (1.8-2.4cm)Doppler AVA2.09cm2 Pulmonic Valve V21.28m/s Tricuspid Valve TR Velocity2.60m/s [id number] LEFT VENTRICLE The left ventricle is of normal size. Left ventricular wall thickness is normal. Ejection fraction is normal and estimated at 60-65%. There is no regional wall motion abnormalities. Diastolic functi on is preserved. E to E prime ratio is in normal range. RIGHT VENTRICLE The right ventricle is of normal size. Systolic function is normal. ATRIA Both atria are of normal size. Not well visualized. MITRAL VALVE Normal in structure and function. No significant mitral regurgitation. PULMONIC VALVE Likely normal. TRICUSPID VALVE Normal structure and function. There is trace tricuspid regurgitation. PA systolic pressure is rosemarie mated at 30 mm Hg. AORTIC VALVE Normal structure and function. GREAT VESSELS The aortic root is of normal size. Proximal ascending aorta is not well visualized. PERICARDIAL EFFUSION There is no pericardial effusion. IVC was normal size and collapses normally with inspiration. Other Information Technically limited study due to body habitus and implants. Conclusion The study is technically limited. Normal left ventricular size and systolic function. Ejection fraction is estimated at 60-65%. Normal right ventricular size and systolic function. No hemodynamically significant valvular disease. No evidence of pulmonary hypertension. No significant pericardial effusion.
--- NOTE | 2024-08-31 14:20 | DVHPN2 ---
Reviewed: Care Plan, H&P, Labs, Medications, Previous Orders, Radiology Changes from previous H/P or p: No Changes Eyes: No Pain, No Vision change, No Conjunctivae inflammation, No Eyelid inflammation, No Other, No Redness ENT: No Ear pain, No Ear discharge, No Nose pain, No Nose discharge, No Nose congestion, No Mouth pain, No Mouth swelling, No Throat pain, No Throat swelling, No Other Cardiovascular: No Chest Pain; Palpitations; No Orthopnea, No Paroxysmal Noc. Dyspnea, No Edema, No Lt Headedness, No Other Respiratory: No Cough, No Dry, No Shortness of breath, No SOB with excertion, No Wheezing, No Hemoptysis, No Pleuritic Pain, No Sputum, No Other Gastrointestinal: No Nausea, No Vomiting, No Abdominal Pain, No Diarrhea, No Constipation, No Melena, No Hematochezia, No Other Genitourinary: No Dysuria, No Frequency, No Incontinence, No Hematuria, No Retention, No Other Musculoskeletal: No other, No neck pain, No shoulder pain, No arm pain, No back pain, No hand pain, No leg pain, No foot pain Skin: No Rash, No Lesions, No Jaundice, No Bruising, No Other Objective Vitals Vital Signs Date Time Temp Pulse Resp B/P (MAP) Pulse Ox O2 Delivery O2 Flow Rate FiO2 08/31/24 13:00 98.1 76 18 124/69 (87) 98 98.1 08/31/24 08:10 Room Air* 0 21 Intake/Output Intake and Output 08/31/24 07:00 Intake Total 400 ml Balance 400 ml Intake Oral 350 ml IV Total 50 ml Medications Current Medications Medications Dose Ordered Sig/Shaila Route Start Time Stop Time Status Last Admin Dose Admin Ceftriaxone Sodium 50 ml @ 100 mls/hr DAILY@09 IV 08/31/24 09:00 08/31/24 09:39 100 MLS/HR Acetaminophen/ Hydrocodone Bitart 1 tab Q4HP PRN PO 08/30/24 12:45 Ondansetron HCl 4 mg Q4HP PRN IV 08/30/24 12:45 Acetaminophen 650 mg Q6HP PRN PO 08/30/24 12:45 Nitroglycerin 0.4 mg Q5MINP PRN SL 08/30/24 12:45 Morphine Sulfate 2 mg Q30M PRN IV 08/30/24 12:45 Sodium Chloride 1,000 ml @ 75 mls/hr [id number] IV 08/30/24 13:00 08/31/24 12:00 75 MLS/HR Laboratory Results Laboratory Tests 08/31/24 06:11 Chemistry Test 08/31/24 06:11 Albumin 4.2 g/dL (3.2-4.8) Calcium Level 9.5 mg/dL (8.7-10.4) Total Protein 6.4 g/dL (5.7-8.2) LFT Test 08/31/24 06:11 Alanine Aminotransferase (ALT) 19 U/L (7-40) Alkaline Phosphatase 58 U/L (46-116) Aspartate Amino Transferase (AST) 20 U/L (13-40) Total Bilirubin 0.8 mg/dL (0.2-1.0) Urinalysis Test 08/30/24 07:25 Urine Color Colorless (Yellow) Urine Clarity Clear (Clear) Urine pH 7.5 (5.0-9.0) Urine Specific [place] 1.004 (1.001-1.035) Urine Protein Negative (Negative) Urine Ketones Negative (Negative) Urine Blood Negative /uL (Negative) Urine Nitrite Negative (Negative) Urine Bilirubin Negative (Negative) Urine Urobilinogen Normal mg/dL (Negative) Urine Leukocyte Esterase 1+ /uL (Negative) Urine RBC 1 /hpf (0 - 4) Urine Microscopic WBC 2 /HPF (0-5) Urine Squamous Epithelial Cells Few /hpf (<5) Urine Bacteria Few /hpf (None Seen) H Urine Glucose Normal mg/dL (Normal) Labs and/or images reviewed: Labs reviewed by me, Image(s) reviewed by me Assessment/Plan Assessment/Plan Palpitations rule out tachyarrhythmias, echo 60 percent ejection fraction, per Cardiology no further workup , advised outpatient event monitor Intermittent PVCs/PACs, low burden Anxiety Plan discussed with: Patient Date of Service: Aug 31, 2024 Billing Provider: HANY HERNANDEZ MD Common Visit Codes: [id number] INP/OBS CARE(HIGH) HANY HERNANDEZ MD Aug 31, 2024 14:20
--- NOTE | 2024-08-31 14:23 | DVHDS2 ---
Discharge Summary Date of Admission Aug 30, 2024 at 12:39 Date of Discharge: Aug 31, 2024 Admitting Diagnosis Palpitations Wounds: None Labs/Diagnostic Data: Laboratory Results Test 08/31/24 06:11 08/30/24 13:19 08/30/24 08:46 08/30/24 07:26 White Blood Count 5.1 10^3/uL (4.4-10.8) Red Blood Count 4.46 10^6/uL (4.0-5.20) Hemoglobin 10.9 g/dL (12.2-16.2) Hematocrit 32.8 % (36.0-46.0) Mean Corpuscular Volume 73.5 fL (80.0-100.0) Mean Corpuscular Hemoglobin 24.3 pg (28.0-32.0) Mean Corpuscular Hemoglobin Concent 33.1 g/dL (32.0-36.0) Red Cell Distribution Width 16.6 % (11.8-14.3) Platelet Count 174 10^3/uL (140-450) Mean Platelet Volume 8.4 fL (6.9-10.8) Neutrophils (%) (Auto) 56.6 % (37.0-80.0) Lymphocytes (%) (Auto) 34.2 % (10.0-50.0) Monocytes (%) (Auto) 7.7 % (0.0-12.0) Eosinophils (%) (Auto) 0.9 % (0.0-7.0) Basophils (%) (Auto) 0.6 % (0.0-2.0) Neutrophils # (Auto) 2.9 10 ^3/uL (1.6-8.6) Lymphocytes # (Auto) 1.7 10 ^3/uL (0.4-5.4) Monocytes # (Auto) 0.4 10 ^3/uL (0-1.3) Eosinophils # (Auto) 0 10 ^3/uL (0-0.8) Basophils # (Auto) 0 10 ^3/uL (0-0.2) Nucleated Red Blood Cells 0.1 % Sodium Level 141 mmol/L (136-145) Potassium Level 3.5 mmol/L (3.5-5.1) Chloride Level 108 mmol/L (98-107) Carbon Dioxide Level 27 mmol/L (20-31) Anion Gap 6 (5-15) Blood Urea Nitrogen 9 mg/dL (9-23) Creatinine 0.76 mg/dL (0.550-1.02) Glomerular Filtration Rate Calc 103 mL/min (>90) BUN/Creatinine Ratio 11.8 (10.0-20.0) Serum Glucose 90 mg/dL (74-106) Calcium Level 9.5 mg/dL (8.7-10.4) Total Bilirubin 0.8 mg/dL (0.2-1.0) Aspartate Amino Transferase (AST) 20 U/L (13-40) Alanine Aminotransferase (ALT) 19 U/L (7-40) Alkaline Phosphatase 58 U/L (46-116) Total Protein 6.4 g/dL (5.7-8.2) Albumin 4.2 g/dL (3.2-4.8) Lactic Acid Level 1.2 mmol/L (0.4-2.0) Troponin I High Sensitivity < 3 ng/L (</=34) Erythrocyte Sedimentation Rate 5 mm/hr (0-20) Hemoglobin A1c 5.2 % A1C (<5.7) Magnesium Level 1.9 mg/dL (1.6-2.6) C-Reactive Protein High Sensitivity 0.07 mg/dL (<1.0) Triglycerides Level 93 mg/dL (< 150) Cholesterol Level 173 mg/dL (< 200) LDL Cholesterol 95 mg/dL (< 100) HDL Cholesterol 66 mg/dL (40-59) Thyroid Stimulating Hormone (TSH) 3.38 uIU/mL (0.55-4.78) Test 08/30/24 07:25 Urine Color Colorless (Yellow) Urine Clarity Clear (Clear) Urine pH 7.5 (5.0-9.0) Urine Specific [place] 1.004 (1.001-1.035) Urine Protein Negative (Negative) Urine Ketones Negative (Negative) Urine Blood Negative /uL (Negative) Urine Nitrite Negative (Negative) Urine Bilirubin Negative (Negative) Urine Urobilinogen Normal mg/dL (Negative) Urine Leukocyte Esterase 1+ /uL (Negative) Urine RBC 1 /hpf (0 - 4) Urine Microscopic WBC 2 /HPF (0-5) Urine Squamous Epithelial Cells Few /hpf (<5) Urine Bacteria Few /hpf (None Seen) Urine Glucose Normal mg/dL (Normal) Urine Opiates Screen Neg (NEGATIVE) Urine Fentanyl Screen Neg (NEGATIVE) Urine Barbiturates Screen Neg (NEGATIVE) Urine Phencyclidine Screen Neg (NEGATIVE) Urine Amphetamines Screen Neg (NEGATIVE) Urine Benzodiazepines Screen Neg (NEGATIVE) Urine Cocaine Screen Neg (NEGATIVE) Urine Cannabinoids Screen Neg (NEGATIVE) Other Laboratory Tests 08/31/24 06:11 Brief Hx & Hospital Course: Admitted for palpitations. Troponin negative TSH normal echo 65 percent ejection fraction seen by Cardiology Dr Yee. Advised outpatient follow up for event monitor discharged home Consults/Reason for consult Cardiology Operations or Procedures Echocardiogram Condition at Discharge: Fair Final Diagnosis/Problems List Palpitations rule out tachyarrhythmias, echo 60 percent ejection fraction, per Cardiology no further workup , advised outpatient event monitor Intermittent PVCs/PACs, low burden Anxiety Discharge Disposition: Home Discharge Instruct/Medications Diet: Regular Activity: Light activity Follow Up/Referral: Follow up with the primary Dr Dr. Guevara Follow up with the Cardiology for outpatient event monitor Medications: None 39 (Time taken for discharge summary 39 minutes) Discharge Statement: "Patient was advised to return to the ER or call 911 if any headaches, dizziness, shortness of breath, chest pain, abdominal pain, bleeding, fevers, or worsening of medical condition. Patient was counseled about treatment plan, medications, possible side effects, patientverbalized understanding. All questions were answered to the best of my ability. This discharge took greater then 30 minutes in planning, reviewing documentation, counseling the patient, and discussing with other team members." ASSESSMENT ASSESSMENT Hospital Course Uneventful Assessment Palpitations rule out tachyarrhythmias, echo 60 percent ejection fraction, per Cardiology no further workup , advised outpatient event monitor Intermittent PVCs/PACs, low burden Anxiety Date of Service: Aug 31, 2024 Billing Provider: HANY HERNANDEZ MD Common Visit Codes: [id number] DISCH DAY >30min HANY HERNANDEZ MD Aug 31, 2024 14:23
== END 2024-08-31 16:50 | disposition home or self-care (01) | DRG 309 ==
LOC: ER 07:14 → TELE 12:39 → TELE-CENTR 18:49
PROVIDERS: ADMIT Family Medicine; ATTEND Family Medicine
DX: I49.9 Cardiac arrhythmia, unspecified (principal); N39.0 Urinary tract infection, site not specified; F41.9 Anxiety disorder, unspecified; I49.3 Ventricular premature depolarization; Z82.49 Family history of ischemic heart disease and other diseases of the circulatory system
CPT/HCPCS: 36415; 71045; 80048; 80053; 80061; 80307; 81001; 83036; 83605; 83735; 84443; 84484; 85025; 85652; 86141; 93005; 93306; G0378